=== PATIENT | male | born 1975 | race Caucasian/White ===

== ENCOUNTER → 2017-12-03 | Outpatient (CLI) | payer BC ==
--- NOTE | 2017-12-03 13:02 | P.STRESS ---
- Stress Test Note Stress Test Results/Findings: Exam Performed: stress echo exercise Exam Date: 12/03/17 Reason for Exam: CHEST PAIN Height: 6 ft 1 in Weight: 101.151 kg Protocol: KENYON Stage: 4 Duration of Exercise: 11:00 Resting Heart Rate: 80 Resting Blood Pressure: 131/66 Maximum Achieved Heart Rate: 171 Maximum Achieved Blood Pressure: 207/62 85% PMHR: 150 100% PMHR: 177 METS: 12.1 Technologist Comment: Stress Test Results/Findings: This is a 42-year-old male being evaluated for Cardec status. Patient has history of hypertension, diabetes and family history of ischemic heart disease.. Patient also had complaints of palpitations. Baseline EKG showed sinus rhythm with normal DC interval, QRS duration. Patient walked on the Kenyon protocol for 11 minutes achieving a maximum heart rate of 156 with a blood pressure of about 161/78. The peak blood pressure actually is 207/62. EKGs taken during and after exercise did not reveal any changes to suggest ischemia. Occasional PACs were noted. Echo data. The stress test is done with contrast. Baseline echo images show normal wall motion and thickening. Exercise echo images showed augmentation of wall motion and thickening in all the segments. Final impression: #1. Negative stress test #2. Negative contrast stress echo.
--- NOTE | 2017-12-07 17:28 | ECHOS ---
- Stress Test Note Stress Test Results/Findings: Exam Performed: stress echo exercise Exam Date: 12/03/17 Reason for Exam: CHEST PAIN Height: 6 ft 1 in Weight: 101.151 kg Protocol: KENYON Stage: 4 Duration of Exercise: 11:00 Resting Heart Rate: 80 Resting Blood Pressure: 131/66 Maximum Achieved Heart Rate: 171 Maximum Achieved Blood Pressure: 207/62 85% PMHR: 150 100% PMHR: 177 METS: 12.1 Technologist Comment: Stress Test Results/Findings: This is a 42-year-old male being evaluated for Cardec status. Patient has history of hypertension, diabetes and family history of ischemic heart disease.. Patient also had complaints of palpitations. Baseline EKG showed sinus rhythm with normal PA interval, QRS duration. Patient walked on the Kenyon protocol for 11 minutes achieving a maximum heart rate of 156 with a blood pressure of about 161/78. The peak blood pressure actually is 207/62. EKGs taken during and after exercise did not reveal any changes to suggest ischemia. Occasional PACs were noted. Echo data. The stress test is done with contrast. Baseline echo images show normal wall motion and thickening. Exercise echo images showed augmentation of wall motion and thickening in all the segments. Final impression: #1. Negative stress test #2. Negative contrast stress echo. ANA
== END | disposition home or self-care (01) ==
LOC: RADNMMAIN 08:55
PROVIDERS: ATTEND Family Medicine
DX: R00.2 Palpitations (principal)
CPT/HCPCS: 93350; 93017; Q9950

== ENCOUNTER → 2019-02-25 | Outpatient (CLI) | payer BC ==
--- NOTE | 2019-02-25 08:22 | MR ---
EXAMINATION TYPE: MR knee RT wo con DATE OF EXAM: 02/25/2019 COMPARISON: None HISTORY: R knee pain TECHNIQUE: Multiplanar, multisequence imaging of the right knee is performed without IV contrast. FINDINGS: MEDIAL MENISCUS: Anterior horn medial meniscus appears normal. There is mild increased signal within the posterior horn lateral meniscus. This has an oblique angle. Communication with the articular surf no is not clearly identified. This does come in close approximation on one image to the inferior med ial aspect of the posterior horn medial meniscus. Type I internal derangement is favored over oblique tear which is within the differential. LATERAL MENISCUS: Anterior horn lateral meniscus is slightly small. Couple of linear signals are pres ent extending towards the superior surface. Small oblique tears may be present. Example image [id number] bill ge [id number]. There is increased signal within the posterior horn lateral meniscus complex pattern. Type I i nternal derangement is likely present. Communication with the articular surface is not identified. Ho rizontal component extends towards the anterior portion of the meniscus. CRUCIATE LIGAMENTS: The anterior and posterior cruciate ligaments are intact and unremarkable. COLLATERAL LIGAMENTS: The medial collateral ligament and lateral collateral ligament complex are inta ct and unremarkable. EXTENSOR MECHANISM: Visualized quadriceps and patellar tendons are intact. EFFUSION: There is a small joint effusion. POPLITEAL CYST: There is a very tiny 0.6 cm popliteal cyst. TRICOMPARTMENT SPACES: There is narrowing of the lateral compartment joint space. Medial compartment joint space has some mild narrowing. Patellofemoral joint space appears preserved. CARTILAGE: There is thinning of the medial lateral compartment articular cartilage greater along the lateral aspect and along the tibial plateau and medial knee. BONE MARROW SIGNAL: No focal abnormal marrow signal is appreciated. OTHER: No additional significant abnormality is appreciated. IMPRESSION: 1. Internal derangement of the posterior horns of the medial and lateral menisci. Oblique tear of the posterior horn medial meniscus is not entirely excluded although clear communication with the inferi or articular surface is not demonstrated. 2. Couple of tiny oblique tears of the superior articular surface anterior horn lateral meniscus may be present. 3. Osteoarthritic degenerative change medial and lateral compartments right knee. 4. Tiny popliteal cyst right knee measuring 0.6 cm.
== END ==
LOC: RADMRIMAIN 07:14
PROVIDERS: ATTEND Orthopaedic Surgery
DX: M23.321 Other meniscus derangements, posterior horn of medial meniscus, right knee (principal); M23.351 Other meniscus derangements, posterior horn of lateral meniscus, right knee; M71.21 Synovial cyst of popliteal space [Baker], right knee; M17.11 Unilateral primary osteoarthritis, right knee

== ENCOUNTER 2019-04-21 06:19 | Day surgery (SDC) | payer BC ==
[2019-04-18 10:16] VITALS: BMI 30.5
--- NOTE | 2019-04-20 15:24 | HP ---
HISTORY AND PHYSICAL DATE OF SURGERY: 04/21/2019 Vidal Conklin, a 44-year-old patient seen with progressive right knee pain. We discussed options for treatment with him, he elected to proceed with right knee arthroscopy. Consent was obtained. PAST MEDICAL HISTORY: Mka-fjnzmjz-altgekjpi diabetes, hypertension, hyperlipidemia. PAST SURGICAL HISTORY: Right knee arthroscopy, bilateral shoulder arthroscopy. MEDICATIONS: 1. Janumet. 2. Lisinopril. 3. Omeprazole. 4. . 5. Simvastatin. ALLERGIES: None. SOCIAL HISTORY: Denies tobacco use. PHYSICAL EVALUATION OF THE RIGHT KNEE: His range of motion is 0 to 130 degrees. Tenderness medial joint line. Positive medial Noble's. Ligaments stable. Hip rotation without pain. Distal neurovascular exam intact. RIGHT KNEE RADIOGRAPHS: Revealed mild osteoarthritis. An MRI of the right knee revealed medial and lateral meniscal tears. IMPRESSION: 1. Internal derangement, right knee with medial lateral meniscal tears. 2. Hypertension. 3. Hyperlipidemia. 4. Ilj-zgywgpa-ayjiztmia diabetes. PLAN: Right knee arthroscopy with partial meniscectomy and debridement. MMODL / IJN: [id number] /
[~2019-04-21 06:19] MED LIST: DEXAMETHASONE SOD PHOSPHATE 10 MG/ML 1 ML VIAL IV ONE; HYDROmorphone 0.5 MG/0.5 ML SYRINGE IVP PRN; LACTATED RINGERS 1,000 ML IV SCH; LIDOCAINE 1% 20 ML VIAL (10MG/ML) FOR IV START INTRADERMA PRN; MIDAZOLAM 2 MG/2 ML VIAL IV PRN; ONDANSETRON 4 MG/2 ML VIAL IVP ONE; SCOPOLAMINE 1.5MG/72HR PATCH TRANSDERM ONE
[2019-04-21 06:56] LABS: Glucose,Whole Blood 133 mg/dL (75-99)
[2019-04-21] MEDS ORDERED: SUCCINYLCHOLINE CHLORIDE 100 MG/5 ML SYR IV ONE (07:21)
[2019-04-21] MEDS ORDERED: LIDOCAINE 1% INJ 10MG/ML (20 ML MDV) ONE (07:21)
[2019-04-21] MEDS ORDERED: PROPOFOL 10 MG/ML 20 ML VIAL IV ONE (07:21)
[2019-04-21] MEDS ORDERED: fentaNYL (PF) 50 MCG/ML 2 ML AMP ONE (07:21)
[2019-04-21] MEDS ORDERED: KETOROLAC 30 MG/ML 1 ML VIAL ONE (07:21)
[2019-04-21] MEDS ORDERED: MIDAZOLAM 2 MG/2 ML VIAL ONE (07:21)
[2019-04-21] MEDS ORDERED: BUPIVACAINE (PF) 0.5% 30 ML VIAL INTRAARTIC ONE (07:30)
--- NOTE | 2019-04-21 08:23 | P.OP ---
Date of Procedure: 04/21/19 Preoperative Diagnosis: 1. Internal derangement right knee 2. Soft tissue mass anterior right knee Postoperative Diagnosis: 1. Tear lateral meniscus right knee 2. Grade 1/2 chondromalacia patella right knee 3. Reactive synovitis medial, lateral and suprapatellar compartments right knee 4. Soft tissue mass anterior right knee Procedure(s) Performed: 1. Arthroscopic partial lateral meniscectomy right knee 2. Arthroscopic chondroplasty patella right knee 3. Arthroscopic partial synovectomy medial, lateral and suprapatellar compartments right knee 4. Open excision soft tissue mass anterior right knee Anesthesia: SOFIYAA, local Surgeon: Evert Bejarano Estimated Blood Loss (ml): 5 Pathology: none sent Condition: stable Disposition: PACU Indications for Procedure: 44-year-old patient seen with progressive right knee pain as well as asymptomatic soft tissue mass along the anterior aspect right knee. After having treatment options discussed, he elected to proceed with right knee arthroscopy along with open excision of his anterior soft tissue mass. Consent was obtained. Operative Findings: See description of procedure Description of Procedure: Patient was taken to the operative suite. Patient underwent a general anesthetic by the department of anesthesia. Patient was given preoperative antibiotics. The right lower extremity was placed in a well-padded arthroscopic leg sarmiento. The right leg was prepped and draped in the normal sterile orthopedic fashion. I palpated the soft tissue mass which was mobile in the prepatellar bursal area in guided to a fairly midline position. I made a 23 centimeter incision sharply through skin. I dissected down subcutaneous and identified the soft tissue mass. It appeared to be an area of scarred bursal tissue which resembled cartilage to a degree. The mass itself measured approximately 1 x 1 cm and it was approximately 7 mm thick. This was removed without difficulty. The wound was explored and no other soft tissue masses were identified. The wound was irrigated. was irrigated. The skin was approximate nylon suture. I now moved onto the arthroscopic procedure. A lateral parapatellar and suprapatellar incision was made. Trochars were inserted. Arthroscopy was initiated. Suprapatellar pouch revealed diffuse thick reactive synovitis. The patellofemoral joint appeared to articulate congruently. There grade 1/2 chondromalacia of the patella with small osteochondral tears present. The scope was guided into the medial gutter. No loose bodies or plica were identified The scope was then guided into the medial compartment. A medial parapatellar incision was made. Trocar inserted followed by probe. Medial meniscus was probed and found to be stable. Her was thick reactive synovitis anteriorly. No loose bodies were identified. A partial synovectomy was performed decompressing the reactive synovitis. There was good decompression synovitis. The shaver was now removed Scope and probe were then guided into the intercondylar notch. Cruciates were identified, probed and found to be stable. The scope and probe were then guided into lateral compartment. There was a complex tear involving the posterior horn and midbody lateral meniscus. There were grade 1 chondromalacia changes lateral compartment with no osteochondral tears present. There was thick reactive synovitis anteriorly. I performed a partial lateral meniscectomy down to stable tissue. I performed a partial synovectomy decompressing reactive synovitis. The residual meniscus was found to be stable. There was good decompression synovitis. The scope was in guided back into the suprapatellar compartment. I introduced a motorized shaver into the super compartment. I debrided some piecemeal fragments of meniscus I encountered. I performed a chondroplasty of the patella gained down to stable osteochondral tissue. I performed a partial synovectomy decompressing reactive synovitis within the suprapatellar compartment. Shaver was now removed. There was good decompression of the synovitis. I took one more look around the entire knee, no residual debris. Instruments were now removed from the joint. The joint was infiltrated with .25% Marcaine. Steri-Strips were applied to the portal sites. Sterile dressings were applied. The patient was placed into a WILY hose. No tourniquet was utilized. The patient was awakened, transferred to a bed and taken to recovery stable satisfactory condition.
[2019-04-21 08:27] VITALS: TEMP 96.9
[2019-04-21 09:22] VITALS: BP 129/85; PULSE 87; RESP 18
--- NOTE | 2019-04-21 09:35 | P.OP ---
Date of Procedure: 04/21/19 Preoperative Diagnosis: Internal derangement right knee Postoperative Diagnosis: 1. Tear lateral meniscus right knee 2. 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 Grade 2/3 chondromalacia patella right knee 4. Reactive synovitis medial, lateral and suprapatellar compartments right knee Procedure(s) Performed: 1. Arthroscopic partial lateral meniscectomy right knee 2. Arthroscopic chondroplasty lateral femoral condyle right knee 3. Arthroscopic chondroplasty patella right knee 4. Arthroscopic partial synovectomy medial, lateral and suprapatellar compartments right knee Anesthesia: SOFIYAA, local Surgeon: Evert Bejarano Estimated Blood Loss (ml): 8 Pathology: none sent Condition: stable Disposition: PACU Indications for Procedure: 44-year-old patient seen with progressive right knee pain. After treatment options were discussed, she elected to proceed with arthroscopy. Operative Findings: See description of procedure Description of Procedure: Patient was taken to the operative suite. Patient underwent a general anesthetic by the department of anesthesia. Patient was given preoperative antibiotics. The right lower extremity was placed in a well-padded arthroscopic leg sarmiento. The right leg was prepped and draped in the normal sterile orthopedic fashion. A lateral parapatellar and suprapatellar incision was made. Trochars were inserted. Arthroscopy was initiated. Suprapatellar pouch revealed diffuse thick reactive synovitis. The patellofemoral joint appeared to articulate congruently. There was grade 2/3 chondromalacia of the patella with some osteochondral tears present. The scope was guided into the medial gutter. No loose bodies or plica were identified. The scope was then guided into the medial compartment. A medial parapatellar incision was made. Trocar inserted followed by probe. The medial meniscus was probed and found to be stable. There was an area of grade 1/2 chondromalacia medial femoral condyle weightbearing surface with no osteochondral tears present. There was thick reactive synovitis anteriorly. I performed a partial synovectomy decompressing the thick reactive synovitis. The shaver was removed. There appeared be good decompression of the synovitis. Scope and probe were then guided into the intercondylar notch. Cruciates were identified, probed and found to be stable. The scope and probe were then guided into lateral compartment. There was a complex tear involving the posterior horn and midbody lateral meniscus. There were grade 3 chondral malacia changes lateral femoral condyle weightbearing surface with osteochondral flap tears present. There was thick reactive synovitis anteriorly. I performed a partial lateral meniscectomy getting down to stable meniscal tissue. I performed a chondroplasty of the lateral femoral condyle getting down to stable osteochondral tissue. I performed a partial synovectomy decompressing the thick reactive synovitis. The shaver was removed. There was good decompression of synovitis. The residual meniscus was stable. The residual osteochondral surface medial femoral condyle was stable. The scope was in guided back into the suprapatellar compartment. I introduced a motorized shaver into the suprapatellar compartment. I debrided some piecemeal fragments of meniscus I encountered. I performed a chondroplasty of the patella gained down to stable tissue. I performed a partial synovectomy decompressing the thick reactive synovitis. The shaver was removed. There was good decompression of synovitis. The residual osteochondral surface of patella appeared stable. I took one more look on the entire knee, no residual debris. Instruments were now removed from the joint. The joint was infiltrated with .25% Marcaine. Steri- Strips were applied to the portal sites. Sterile dressings were applied. The patient was placed into a WILY hose. No tourniquet was utilized. The patient was awakened, transferred to a bed and taken to recovery stable satisfactory condition.
== END 2019-04-21 09:37 | disposition home or self-care (01) ==
LOC: OR 06:19
PROVIDERS: ATTEND Orthopaedic Surgery
DX: S83.281A Other tear of lateral meniscus, current injury, right knee, initial encounter (principal); X58.XXXA Exposure to other specified factors, initial encounter; M22.41 Chondromalacia patellae, right knee; M65.861 Other synovitis and tenosynovitis, right lower leg; M79.9 Soft tissue disorder, unspecified; I10 Essential (primary) hypertension; E78.5 Hyperlipidemia, unspecified; E11.9 Type 2 diabetes mellitus without complications; R56.9 Unspecified convulsions; Z79.84 Long term (current) use of oral hypoglycemic drugs; Z79.899 Other long term (current) drug therapy
CPT/HCPCS: 29881; 27327; J2250; J1100; J0690; J2405; J2001; J3010; J1885; J0330; J2704; J1170

== ENCOUNTER → 2019-09-02 | Outpatient (CLI) | payer BC ==
[2019-09-02 19:18] LABS: Basophils # (A) 0.1 k/uL (0-0.2); Basophils % (A) 1 %; Eosinophils # (A) 0.2 k/uL (0-0.7); Eosinophils % (A) 3 %; HCT 47.1 % (39.0-53.0); HGB 16.1 gm/dL (13.0-17.5); Lymphocytes # (A) 2.6 k/uL (1.0-4.8); Lymphocytes % (A) 31 %; MCH 29.6 pg (25.0-35.0); MCHC 34.1 g/dL (31.0-37.0); MCV 86.6 fL (80.0-100.0); Mean Platelet Volume 8.1; Monocytes # (A) 0.7 k/uL (0-1.0); Monocytes % (A) 8 %; Neutrophils # (A) 4.6 k/uL (1.3-7.7); Neutrophils % (A) 55 %; Platelet Count 232 k/uL (150-450); RBC 5.44 m/uL (4.30-5.90); RDW 13.1 % (11.5-15.5); WBC 8.4 k/uL (3.8-10.6)
[2019-09-02 19:21] LABS: ALT 24 U/L (4-49); AST 18 U/L (17-59); African American GFR (CKD) >90 (>60 ml/min/1.73 sqM); Albumin 5.1 g/dL (3.5-5.0); Albumin/Globulin Ratio 1.6; Alkaline Phosphatase 74 U/L (38-126); Anion Gap 10 mmol/L; Blood Urea Nitrogen 20 mg/dL (9-20); Calcium 10.2 mg/dL (8.4-10.2); Carbon Dioxide 27 mmol/L (22-30); Chloride 103 mmol/L (98-107); Globulin 3.1 g/dL; Glucose 133 mg/dL (74-99); Non-African American GFR(CKD) >90 (>60 ml/min/1.73 sqM); Potassium 3.9 mmol/L (3.5-5.1); Sodium 140 mmol/L (137-145); Total Bilirubin 0.4 mg/dL (0.2-1.3); Total Protein 8.2 g/dL (6.3-8.2)
[2019-09-02 19:34] LABS: Creatine Kinase MB 0.6 ng/mL (0.0-2.4); Troponin I <0.012 ng/mL (0.000-0.034)
== END | disposition home or self-care (01) ==
LOC: LABMAIN 18:20
PROVIDERS: ATTEND Family Medicine
DX: R00.2 Palpitations (principal)
CPT/HCPCS: 36415; 80053; 82553; 84439; 84443; 84484; 85025

== ENCOUNTER → 2022-02-18 | Outpatient (CLI) | payer BC ==
--- NOTE | 2022-02-18 07:38 | US ---
EXAMINATION TYPE: US abdomen complete DATE OF EXAM: 02/18/2022 COMPARISON: NONE CLINICAL HISTORY: 46-year-old male R10.9 ABDOMINAL PAIN. N/V TECHNIQUE: Multiple sonographic images of the abdomen are obtained. FINDINGS: EXAM MEASUREMENTS: Liver Length: 13.5 cm Gallbladder Wall: 0.2 cm CBD: 0.4 cm Spleen: not visualized Right Kidney: 12.7 x 4.9 x 6.3 cm Left Kidney: 13.1 x 6.7 x 7.9 cm Pancreas: Only small portions of the pancreatic body are seen. Remainder is obscured by bowel gas. Liver: Slightly heterogeneous parenchyma likely technical artifact. No focal lesion is seen. Gallbladder: No stones seen. No abnormal gallbladder distention, wall thickening, or surrounding flu id. Evidence for sonographic Vazquez's sign: Yes CBD: wnl Spleen: not visualized , extensive peristalsing bowel noted. Right Kidney: No hydronephrosis or masses seen Left Kidney: Upper pole is limited by bowel gas shadowing. No hydronephrosis. Upper IVC: wnl Abd Aorta: wnl IMPRESSION: 1. Slightly heterogeneous liver parenchyma could represent nonspecific hepatocellular disease or coul d be technical artifact. Correlate with LFTs. 2. No gallstones or biliary ductal dilatation. However, Sonographic Vazquez's sign is reported positiv e. This may reflect referred pain. If further imaging assessment of the gallbladder is desired, HIDA scan with ejection fraction can be performed.
== END | disposition home or self-care (01) ==
LOC: RADUSWWP 06:44
PROVIDERS: ATTEND Family Medicine
DX: K76.89 Other specified diseases of liver (principal)
CPT/HCPCS: 76700

== ENCOUNTER → 2022-04-22 | Outpatient (CLI) | payer BC ==
--- NOTE | 2022-04-22 10:29 | NM ---
EXAMINATION TYPE: NM hepatobiliary w EF DATE OF EXAM: 04/22/2022 COMPARISON: NONE INDICATION: Unspecified abdominal pain TECHNIQUE: After the intravenous administration of 5 mCi Tc 99m Mebrofenin hepatobiliary scintigraphy is performed. Images were obtained immediately post injection. FINDINGS: There is prompt uptake and excretion of radiotracer by the liver. Extrahepatic ducts are identified at 4 minutes. The gallbladder is visualized within 2 minutes. Small bowel activity is noted within 60 minutes. At one hour 8 ounces of oral ensure plus is given to mimic CCK and gallbladder ejection fraction is c alculated at 61 %, which is in the normal range. (Normal >35% and <80%.). IMPRESSION: 1. Normal hepatobiliary scan
== END | disposition home or self-care (01) ==
LOC: RADNMMAIN 06:35
PROVIDERS: ATTEND Family Medicine
DX: R10.9 Unspecified abdominal pain (principal)
CPT/HCPCS: 78226; A9537

== ENCOUNTER 2023-09-16 08:24 | Day surgery (SDC) | payer BC ==
[2023-09-10 13:02] VITALS: BMI 30.9
--- NOTE | 2023-09-15 22:28 | HP ---
HISTORY AND PHYSICAL DATE OF SURGERY: 09/16/2023. HISTORY OF PRESENT ILLNESS: Vidal Baeza is a 48-year-old gentleman seen with progressive right knee pain. We discussed options for treatment. He elected to proceed with right knee arthroscopy. Consent is obtained. PAST MEDICAL HISTORY: Hypertension, hyperlipidemia, vdg-nnezjrv-nnyeizjpj diabetes. PAST SURGICAL HISTORY: Knee arthroscopy, shoulder arthroscopy. DAILY MEDICATIONS: 1. Metformin. 2. Naprosyn. 3. Rosuvastatin. ALLERGIES: None. SOCIAL HISTORY: Denies current tobacco use. PHYSICAL EVALUATION OF THE RIGHT KNEE: Range of motion is negative 1/2 to 100 degrees. Tenderness along the medial and lateral joint lines. Positive medial Noble's. Positive lateral Noble's. Ligaments are stable. Hip rotation is without pain. His distal neurovascular exam is intact. IMAGING STUDIES: Radiographs of the right knee revealed mild osteoarthritis. Right knee MRI revealed medial and lateral meniscal tears. IMPRESSION: 1. Internal derangement of right knee with medial and lateral meniscal tears. 2. Hyperlipidemia. 3. Idf-jpvfcdm-tgxcgqqtv diabetes. PLAN: Right knee arthroscopy with partial medial/lateral meniscectomy and debridement. MMODL / IJN: [id number] /
[~2023-09-16 08:24] MED LIST changes: -DEXAMETHASONE SOD PHOSPHATE 10 MG/ML 1 ML VIAL IV ONE; +DEXAMETHASONE SOD PHOSPHATE 4 MG/ML 1 ML VIAL IV ONE; +LIDOCAINE 1% (10MG/ML) FOR IV START INTRADERMA PRN; -LIDOCAINE 1% 20 ML VIAL (10MG/ML) FOR IV START INTRADERMA PRN; -MIDAZOLAM 2 MG/2 ML VIAL IV PRN; +SCOPOLAMINE 1 MG/72 HR PATCH TRANSDERM ONE; -SCOPOLAMINE 1.5MG/72HR PATCH TRANSDERM ONE; +droPERidol 5 MG/2 ML VIAL IVP ONE
[2023-09-16 09:19] LABS: Glucose,Whole Blood 156 mg/dL (70-110)
[2023-09-16] MEDS ORDERED: FAMOTIDINE 20 MG/2 ML VIAL IVP ONE (09:20)
[2023-09-16] MEDS ORDERED: diphenhydrAMINE 50 MG/ML 1 ML VIAL IVP ONE (09:21)
[2023-09-16] MEDS ORDERED: fentaNYL (PF) 50 MCG/ML 2 ML AMP ONE (09:55)
[2023-09-16] MEDS ORDERED: LIDOCAINE 1% INJ 10MG/ML (20 ML MDV) ONE (09:55)
[2023-09-16] MEDS ORDERED: PROPOFOL 10 MG/ML 20 ML VIAL IV ONE (09:55)
[2023-09-16] MEDS ORDERED: MIDAZOLAM 2 MG/2 ML VIAL ONE (09:55)
[2023-09-16] MEDS ORDERED: BUPIVACAINE (PF) 0.25% 30 ML VIAL SQ ONE ×2 (10:02→10:32)
--- NOTE | 2023-09-16 10:50 | P.OP ---
Date of Procedure: 09/16/23 Preoperative Diagnosis: Internal derangement right knee Postoperative Diagnosis: 1. Tear medial and lateral meniscus right knee 2. Reactive synovitis medial, lateral and suprapatellar compartments right knee 3. Grade 2 chondromalacia patella right knee Procedure(s) Performed: 1. Arthroscopic partial medial and lateral meniscectomy right knee 2. Arthroscopic partial synovectomy medial, lateral and suprapatellar compartments right knee 3. Arthroscopic chondroplasty patella right knee Anesthesia: SOFIYAA, local Surgeon: Evert Bejarano Estimated Blood Loss (ml): 5 Pathology: none sent Condition: stable Disposition: PACU Indications for Procedure: 48-year-old gentleman seen with progressive right knee pain. After having treatment options discussed, he elected to proceed with arthroscopy. Operative Findings: See description of procedure Description of Procedure: Patient was taken to the operative suite. Patient underwent a general anesthetic by the department of anesthesia. Patient was given preoperative antibiotics. The right lower extremity was placed in a well-padded arthroscopic leg sarmiento. The right leg was prepped and draped in the normal sterile orthopedic fashion. A lateral parapatellar and suprapatellar incision was made. Trochars were inserted. Arthroscopy was initiated. Suprapatellar pouch revealed diffuse thick reactive synovitis. The patellofemoral joint appeared to articulate congruently. There was grade 2 chondromalacia of the patella with some osteochondral flap tears. The scope was guided into the medial gutter. No loose bodies or plica were identified. The scope was then guided into the medial compartment. A medial parapatellar incision was made. Trocar inserted followed by probe. There was a complex tear involving the posterior horn of the medial meniscus. There were grade 1 chondromalacia changes along the medial femoral condyle and grade 1/2 chondromalacia changes of the posterior aspect of the medial tibial plateau with no tears. There was thick reactive synovitis anteriorly. I performed a partial medial meniscectomy getting down to stable meniscal tissue. I performed a partial synovectomy decompressing the thick reactive synovitis anteriorly. Scope and probe were then guided into the intercondylar notch. Cruciates were identified, probed and found to be stable. The scope and probe were then guided into lateral compartment. There was a ra dial tear posterior horn lateral meniscus. There were grade 2 chondromalacia changes lateral tibial plateau. There was thick reactive synovitis anteriorly. I performed a partial lateral meniscectomy getting down to stable meniscal tissue. I performed a partial synovectomy decompressing the thick reactive synovitis. The residual meniscus was found to be stable. There was good decompression of the synovitis. The scope was in guided back into the suprapatellar compartment. I introduced a motorized shaver into the suprapatellar compartment. I debrided some piecemeal fragments of meniscus that I encountered. I performed a chondroplasty of the patella getting down to stable osteochondral tissue. I performed a partial synovectomy decompressing the thick reactive synovitis. Shaver was now removed. The residual osteochondral surface of the patella was stable. There was good decompression of the synovitis. I now took one more look around the entire knee, no debris. Instruments were now removed from the joint. The joint was infiltrated with .25% Marcaine. Steri-Strips were applied to the portal sites. Sterile dressings were applied. The patient was placed into a WILY hose. No tourniquet was utilized. The patient was awakened, transferred to a bed and taken to recovery stable satisfactory condition.
[2023-09-16 11:02] VITALS: RESP 16; TEMP 97.4
[2023-09-16 11:08] LABS: Glucose,Whole Blood 135 mg/dL (70-110)
[2023-09-16 12:16] VITALS: BP 120/79; PULSE 75
== END 2023-09-16 12:19 | disposition home or self-care (01) ==
LOC: OR 08:24
PROVIDERS: ATTEND Orthopaedic Surgery
DX: S83.281A Other tear of lateral meniscus, current injury, right knee, initial encounter (principal); M23.91 Unspecified internal derangement of right knee; M22.41 Chondromalacia patellae, right knee; I10 Essential (primary) hypertension; E78.5 Hyperlipidemia, unspecified; E11.9 Type 2 diabetes mellitus without complications; Z79.84 Long term (current) use of oral hypoglycemic drugs; Z79.899 Other long term (current) drug therapy; X58.XXXA Exposure to other specified factors, initial encounter
CPT/HCPCS: 29880; J2250; J1200; J1100; J0690; J2405; J2001; J3010; J3490; J2704; J1170; J0665

== ENCOUNTER → 2023-12-30 | Outpatient (CLI) | payer BC ==
--- NOTE | 2023-12-30 18:55 | MR ---
EXAMINATION TYPE: MR lumbar spine wo con DATE OF EXAM: 12/30/2023 6:26 PM CLINICAL INDICATION:Male, 48 years old with history of M54.50 LOW BACK PAIN, UNSPECIFIED; PHH, Low ba ck pain that radiates down both legs. COMPARISON: None TECHNIQUE: Multi planar, multi sequence imaging was performed utilizing: T1-weighted, T2-weighted, a nd turbo inversion recovery imaging of the lumbar spine. IV Contrast: cc . (None if empty) FINDINGS: Alignment: The lumbar vertebral bodies have preserved heights and alignment. Cord: The conus medullaris and the distal spinal cord appear unremarkable with regards to their signa l intensity and morphology. Bones/Discs: Mild degeneration changes throughout the spine with osteophyte formation and facet joint arthropathy. Intervertebral disc signal is maintained. T12-L1: No evidence of significant spinal canal stenosis or neural foraminal stenosis. L1-L2: No evidence of significant spinal canal stenosis or neural foraminal stenosis. L2-L3: No evidence of significant spinal canal stenosis or neural foraminal stenosis. L3-L4: No evidence of significant spinal canal stenosis or neural foraminal stenosis. L4-L5: Disc bulge and facet joint arthropathy result in mild spinal canal and moderate bilateral neur al foraminal stenosis. L5-S1: The disc is rounded posterior morphology without significant spinal canal stenosis. Facet join t arthropathy with moderate bilateral neural foraminal stenosis. No significant spinal canal or neural foraminal stenosis in the remainder of the visualized levels. Other findings: None. IMPRESSION: 1. No definitive evidence of disc herniation or significant spinal canal stenosis. 2. Multilevel disc degeneration with associated osteoarthritic changes with moderate bilateral neura l foraminal stenosis at L4-L5 and L5-S1.
== END | disposition home or self-care (01) ==
LOC: RADMRIMAIN 16:28
PROVIDERS: ATTEND Orthopaedic Surgery
DX: M51.37 Other intervertebral disc degeneration, lumbosacral region (principal); M99.73 Connective tissue and disc stenosis of intervertebral foramina of lumbar region
CPT/HCPCS: 72148

== ENCOUNTER → 2024-02-25 | Outpatient (CLI) | payer BC ==
[2024-02-25 08:36] VITALS: BP 116/79; PULSE 75; RESP 16; TEMP 97.6
--- NOTE | 2024-02-25 14:26 | P.PAINPG ---
PQRS Measure Charge Sheet Comment: HISTORY OF PRESENT ILLNESS: A 48 yr old male as a referral from [facility][1] presents today w severe and chronic LBP > 3 mo secondary to DDD, spondylosis and facet arthropathy without myelopathy for evaluation. Pt states pain level is provoked at 6 /10 in intensity, constant, localized in the lumbar spine, predominantly axial, sharp in character w occasional shooting pain towards L & R of midline. Pain is provoked by standing/ walking for periods > 15 min. Pain is alleviated by PT x 14 wks which he is currently in, heat, medications (Neurontin, Celebrex), repositioning and rest . Oswestry axial pain score at 24. PMH: OA, IDDM II, Hyperlipidemia PSH: R Knee Arthroscopy x2 (2018, 2022) SH: Denies FH: Non contributory All: See list Meds: See list REVIEW OF ORGAN SYSTEMS: CONSTITUTIONAL: No fevers or chills. No recent weight loss. NEUROLOGICAL: + numbness and tingling along the distal extremities. No seizure disorders or headaches. MUSCULOSKELETAL: + pain PSYCHIATRIC: Denies current depression or suicidal thoughts. Physical Examinations : Constitutional : Cooperative , not in acute distress . Neurologic : Cranial nerve II to XII intact. No focal neurological deficits. Psychiatric : alert & oriented x 3. Matching mood & appropriate affect. Judgment & insight intact. Musculoskeletal : Cervical Spine Motor strength in the deltoid and biceps: Normal right side. Normal Left side Motor strength biceps and the wrist extensors: Normal right side . Normal left side Motor strength in the triceps muscle: Normal right side. Normal left side Deep tendon reflexes: Normal at the biceps. Normal at Brachioradialis. Normal at triceps Vertebral body tenderness to deep palpation over Cervical facet loading test: positive bilaterally Spurling test: positive bilaterally Neck distraction test: positive bilat erally Jerilyn sign: positive bilaterally Lumbar spine Motor strength lower extremities ,thigh and legs 5/5 Right side , 5/5 Left side Deep tendon reflexes : Normal Knee Jerk. Normal Ankle Jerk Vertebral body tenderness over Diaz Test positive Lumbar facet Loading Test: positive Right / positive Left L4-L5, L5-S1 Range of motion of the lumbar spine Flexion 30 degrees, extension 10 degrees Straight Leg Raise test: Left/ Right positive at degrees Héctor test: positive right / positive left. Severe tenderness over the Sacroiliac joint on the Right / Left sides Jose test: positive bilaterally Seated flexion test: positive bilaterally. Sacral spine : Severe tenderness over the Sacroiliac joint: right side / left side Range of motion: Flexion of the lumbar spine <60 degrees Range of motion: Extension of the lumbar spine <20 degrees Gaenslen's Test positive Héctor test: positive right side / left side Thigh Thrust Test Sacral Thrust Test Imaging: MRI noncontrast of the lumbar spine from 12/30/2023 reviewed Assessment/ Plan : Lumbar DDD Recommendation of BL MBB L4-L5, L5-S1 #1. May need a series of injections, up until RFA, for optimal pain relief. Risks, benefits of procedure discussed and patient verbalized understanding. Admits to anti- coagulant use or medical history of diabetes. Protocol for discontinuation/ continuation of medications tari procedure discussed. Minimal anesthesia provided, if clinically indicated, consisting of Versed and Fentanyl. All questions answered. I have spent greater than 30 minutes on patient care today. Dr Vinson was available by phone for the evaluation of this patient. The time was used to review the medical records including relevant urine studies and Prescription history (MAPs), review of the available imaging, evaluation and examination of the patient, coordination of care with the medical staff and if applicable referring physicians, as well as creation of the medical record - Pain Location Lower Back Pharmacological Interventions: PRN Medication PQRS Narrative: Smoking Status Former smoker Home Medications: Ambulatory Orders lisinopriL [Zestril] 2.5 mg PO DAILY 04/18/19 Empagliflozin [Jardiance] 25 mg PO DAILY 09/10/23 Rosuvastatin [Crestor] 20 mg PO DAILY 09/10/23 Semaglutide [Ozempic] 0.25 mg SQ TH 09/10/23 metFORMIN HCL [Glucophage] 1,000 mg PO BID 09/10/23 Celecoxib 200 mg PO BID 02/25/24 Controlled Substance Measures - Controlled Substance Measures Is patient prescribed a controlled substance at discharge?: No
== END ==
LOC: PNWHC3 07:31
PROVIDERS: ATTEND Specialist
DX: M51.17 Intervertebral disc disorders with radiculopathy, lumbosacral region (principal); M47.27 Other spondylosis with radiculopathy, lumbosacral region; Z87.891 Personal history of nicotine dependence
CPT/HCPCS: 99211